=== PATIENT | male | born 1955 | race Caucasian/White ===

== ENCOUNTER 2023-11-27 10:02 | Outpatient (CLI) | payer MEDICARE, BC, SELFPAY ==
--- NOTE | 2023-11-27 11:00 | MR_ITS ---
WS: [id number] MRI LUMBAR SPINE NONCONTRAST TECHNIQUE: Sagittal T1, T2 and STIR imaging. Axial T1 and T2 imaging. CLINICAL INFORMATION: M47.816 - Spondylosis without myelopathy or radiculopathy... COMPARISON: None. FINDINGS: Mild lumbar curve. Acute appearing compression fractures involving the superior endplate L5 and infer ior endplate L4 with visualized fracture clefts. Associated edema with minimal loss of vertebral body height. Minimal retropulsion of the posterior superior cortex L5 with moderate central canal stenosi s. L1-L2: Mild disc bulging. Slight effacement of ventral thecal sac. Mild facet arthropathy. Mild LEFT greater than RIGHT foraminal narrowing. L2-L3: Mild disc bulging and osteophytic ridging. Narrowing subarticular recess bilaterally. Mild fac et arthropathy. L3-L4: Mild annular bulging. Impingement traversing RIGHT greater than LEFT L4 nerve roots with mild central canal stenosis. Moderate facet arthropathy. Mild LEFT greater than RIGHT foraminal narrowing. L4-L5: Central disc bulging with moderate central canal stenosis. Moderate facet arthropathy. Moderat e RIGHT and mild LEFT foraminal narrowing. Impingement traversing L5 nerve roots bilaterally. Mild re tropulsion at L5 contributes to stenosis. L5-S1: Mild annular bulging. Slight impingement traversing RIGHT S1 nerve root in the subarticular re cess. Mild RIGHT foraminal narrowing. Moderate facet arthropathy. Visualized pelvic bony structures: Normal. Paravertebral soft tissues: Normal. Small RIGHT renal cyst. Tarlov cyst in the sacrum. 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 Chronic appearing anterior wedging in the midthoracic spine at T7 and T8. Fracture cl eft inferior plate T7 age-indeterminate. IMPRESSION: 1. Acute appearing compression fractures involving the inferior endplate L4 and superior endplate L5 with edema worse at L4. Minimal loss vertebral body height. Slight retropulsion posterior superior c ortex at L5. 2. Additional chronic appearing anterior wedging with fracture cleft in the inferior endplate T7 age -indeterminate. This could be further evaluated with thoracic spine MRI. 3. Mild central canal stenosis L3-4. 4. Moderate central canal stenosis L4-5 due to disc bulging with facet arthropathy and ligamentum fl avum hypertrophy. Impingement on the traversing L5 nerve roots bilaterally. Impingement on the sendy sing L5 nerve roots bilaterally. 5. Disc bulging L5-S1 with impingement traversing RIGHT S1 nerve root in the subarticular recess. Mi ld RIGHT L5-S1 foraminal narrowing. 6. Mild LEFT L3-4 and moderate RIGHT L4-5 foraminal narrowing. 7. Small disc protrusions in the cervical spine C5-C7 with mild central canal stenosis. This could b e further evaluated with cervical spine MRI.
== END 2023-11-27 10:03 | disposition home or self-care (01) ==
LOC: RAD 10:03
PROVIDERS: PCP Family Medicine; Visit Provider Family Medicine
DX: M47.816 Spondylosis without myelopathy or radiculopathy, lumbar region (principal); S32.040A Wedge compression fracture of fourth lumbar vertebra, initial encounter for closed fracture; S32.050A Wedge compression fracture of fifth lumbar vertebra, initial encounter for closed fracture; X58.XXXA Exposure to other specified factors, initial encounter; M51.37 Other intervertebral disc degeneration, lumbosacral region; M47.897 Other spondylosis, lumbosacral region; M48.061 Spinal stenosis, lumbar region without neurogenic claudication
CPT/HCPCS: 72148

== ENCOUNTER → 2023-12-18 13:10 | Outpatient (BNVA) | payer MEDICARE, BC, SELFPAY | PROVIDERS: PCP Family Medicine; Referring Provider Family Medicine; Visit Provider Orthopaedic Surgery | DX: S32.040A Wedge compression fracture of fourth lumbar vertebra, initial encounter for closed fracture (principal); S32.050A Wedge compression fracture of fifth lumbar vertebra, initial encounter for closed fracture; X58.XXXA Exposure to other specified factors, initial encounter | CPT/HCPCS: 72100; 99204 ==

== ENCOUNTER → 2024-01-29 10:27 | Outpatient (BNVA) | payer MEDICARE, BC, SELFPAY | PROVIDERS: PCP Family Medicine; Visit Provider Orthopaedic Surgery | DX: M54.9 Dorsalgia, unspecified (principal); S32.050G Wedge compression fracture of fifth lumbar vertebra, subsequent encounter for fracture with delayed healing; X58.XXXD Exposure to other specified factors, subsequent encounter | CPT/HCPCS: 36415; 72100; 80053; 81001; 85025; 87086; 99214 ==